=== PATIENT | male | born 1930 | race Caucasian/White ===

== ENCOUNTER 2018-09-24 06:35 | Outpatient (CLI) | payer MEDICARE, OTHER | END 2018-09-24 06:36 | disposition short-term general hospital (02) | LOC: EMS 06:35 | PROVIDERS: ATTEND Surgery | DX: R25.2 Cramp and spasm (principal); R10.30 Lower abdominal pain, unspecified; R35.8 Other polyuria | CPT/HCPCS: A0425; A0429 ==

== ENCOUNTER 2018-12-30 14:58 | Outpatient (CLI) | payer MEDICARE, OTHER | END 2018-12-30 14:59 | disposition short-term general hospital (02) | LOC: EMS 14:58 | PROVIDERS: ATTEND Surgery | DX: R07.81 Pleurodynia (principal); V49.40XA Driver injured in collision with unspecified motor vehicles in traffic accident, initial encounter; Y92.414 Local residential or business street as the place of occurrence of the external cause | CPT/HCPCS: A0425; A0427 ==

== ENCOUNTER 2020-07-06 19:37 | Outpatient (CLI) | payer MEDICARE, OTHER | END 2020-07-06 19:38 | disposition short-term general hospital (02) | LOC: EMS 19:37 | PROVIDERS: ATTEND Surgery | DX: R10.30 Lower abdominal pain, unspecified (principal) | CPT/HCPCS: A0425; A0429 ==

== ENCOUNTER 2021-02-03 03:22 | Outpatient (CLI) | payer MEDICARE, OTHER | END 2021-02-03 03:23 | disposition short-term general hospital (02) | LOC: EMS 03:22 | DX: Z04.3 Encounter for examination and observation following other accident (principal); R25.1 Tremor, unspecified | CPT/HCPCS: A0425; A0429 ==

== ENCOUNTER 2021-09-21 17:08 | Outpatient (CLI) | payer MEDICARE, OTHER | END 2021-09-21 17:09 | disposition critical access hospital (66) | LOC: EMS 17:08 | DX: R50.9 Fever, unspecified (principal); R11.0 Nausea | CPT/HCPCS: A0425; A0429 ==

== ENCOUNTER 2021-09-21 17:25 | Emergency (ER) | payer MEDICARE, OTHER ==
--- NOTE | 2021-09-21 17:32 | ED Physician Documentation ---
PD HPI FEVER - Stated complaint Stated Complaint: WEAKNESS - History obtained from History obtained from: Patient - Additional information Additional information: 89-year-old gentleman with history of UTIs was noted to be febrile and a single temperature reading at assisted living to 102 today. Fever has since defervesced. He felt nauseous with dysuria this morning, the nausea has abated. No cough or abdominal pain. Review of Systems Ten Systems: 10 systems reviewed and negative Constitutional: reports: Fever. denies: Chills Nose: reports: Reviewed and negative Cardiac: reports: Reviewed and negative Respiratory: reports: Reviewed and negative PD PAST MEDICAL HISTORY - Present Medications Home Medications: Ambulatory Orders Medication Instructions Recorded Confirmed Cefdinir 300 mg PO BID #20 cap 09/21/21 - Allergies Allergies/Adverse Reactions: Allergies Allergy/AdvReac Type Severity Reaction Status Date / Time No Known Drug Allergies Allergy Verified 09/21/21 17:38 PD ED PE NORMAL - Vitals Vital signs reviewed: Yes - General General: Alert and oriented X 3, Other (Very mild cognitive deficits, but alert oriented cooperative and pleasant.) - HEENT HEENT: PERRL, EOMI - Respiratory Respiratory: No respiratory distress, Clear bilaterally - Abdomen Abdomen: Non tender - Derm Derm: No rash - Extremities Extremities: No edema, No calf tenderness / cord Results - Vitals Vitals: Vital Signs - 24 hr 09/21/21 09/21/21 09/21/21 17:30 17:31 18:30 Temperature Heart Rate 78 53 L 83 Respiratory 28 H 16 23 Rate Blood Pressure 137/66 H 132/86 H 130/73 O2 Saturation 97 96 96 09/21/21 09/21/21 09/21/21 18:37 19:22 20:13 Temperature 36.6 C 37 C Heart Rate 72 75 78 Respiratory 25 H 20 24 Rate Blood Pressure 137/66 H 139/92 H 134/88 H O2 Saturation 98 97 96 Oxygen O2 Source Room air - Labs Labs: Laboratory Tests 09/21/21 09/21/21 09/21/21 17:41 17:41 17:41 WBC 14.2 H RBC 4.02 L Hgb 12.8 L Hct 37.4 L MCV 93.0 MCH 31.8 H MCHC 34.2 RDW 13.3 Plt Count 189 MPV 11.2 Neut # (Auto) 12.3 H Lymph # (Auto) 0.6 L Bleckley # (Auto) 1.3 H Eos # (Auto) 0.0 Baso # (Auto) 0.0 Absolute Nucleated RBC 0.00 Nucleated RBC % 0.0 Sodium 129 L Potassium 4.3 Chloride 99 L Carbon Dioxide 19 L Anion Gap 11.0 BUN 38 H Creatinine 1.6 H Estimated GFR (MDRD) 41 L Glucose 176 H Lactic Acid 2.6 H Calcium 9.0 Total Bilirubin 1.0 AST 39 ALT 15 Alkaline Phosphatase 103 Total Protein 7.3 Albumin 4.0 Globulin 3.3 Albumin/Globulin Ratio 1.2 Urine Color Urine Clarity Urine pH Ur Specific Brady Urine Protein Urine Glucose (UA) Urine Ketones Urine Occult Blood Urine Nitrite Urine Bilirubin Urine Urobilinogen Ur Leukocyte Esterase Urine RBC Urine WBC Ur Squamous Epith Cells Urine Bacteria Urine Culture Comments 09/21/21 18:25 WBC RBC Hgb Hct MCV MCH MCHC RDW Plt Count MPV Neut # (Auto) Lymph # (Auto) Bleckley # (Auto) Eos # (Auto) Baso # (Auto) Absolute Nucleated RBC Nucleated RBC % Sodium Potassium Chloride Carbon Dioxide Anion Gap BUN Creatinine Estimated GFR (MDRD) Glucose Lactic Acid Calcium Total Bilirubin AST ALT Alkaline Phosphatase Total Protein Albumin Globulin Albumin/Globulin Ratio Urine Color YELLOW Urine Clarity CLEAR Urine pH 6.0 Ur Specific Brady 1.015 Urine Protein 30 H Urine Glucose (UA) NEGATIVE Urine Ketones NEGATIVE Urine Occult Blood LARGE H Urine Nitrite NEGATIVE Urine Bilirubin NEGATIVE Urine Urobilinogen 0.2 (NORMAL) Ur Leukocyte Esterase LARGE H Urine RBC 6-10 H Urine WBC >25 H Ur Squamous Epith Cells RARE Squamous Urine Bacteria Rare Urine Culture Comments INDICATED - Rads (name of study) Three view of the x-ray 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 Tried to get discharge summary from [facility] but despite PRASHANTH E stating that he was there last summer, they have no records. Ppotential UTI. He is afebrile with unremarkable vital signs here and therefore he is nonseptic. Does have an elevated white count with borderline lactic acidosis. He is borderline for admission, unfortunately no hospital beds are Available due to Covid outbreak either here nor anywhere in the region and therefore he is given a gram of Rocephin with close follow-up. Departure - Departure Disposition: 01 Home, Self Care Clinical Impression: UTI (urinary tract infection) Qualifiers: Urinary tract infection type: acute pyelonephritis Qualified Code(s): N10 - Acute pyelonephritis Condition: Good Record reviewed to determine appropriate education?: Yes Instructions: ED UTI Pyelonephritis Male Prescriptions: Cefdinir 300 mg PO BID #20 cap Comments: He should have 3 times daily vital signs and return if he develops tachycardia or hypotension. Or otherwise worsens. He did receive 1 g of ceftriaxone intramuscularly here. Remainder of antibiotics should be filled tomorrow morning and started tomorrow morning. We will culture your urine, the results should be done in 48-72 hours. If an antibiotic change is necessary we will call you. Return if worse in the meantime, especially if you develop increasing flank pain, fevers, or cannot keep down the medication. Discharge Date/Time: 09/21/21 20:13
[2021-09-21 17:56] LABS: BASOPHILS % (AUTO) 0.1 %; HCT - HEMATOCRIT 37.4 % (42.0-52.0); HGB - HEMOGLOBIN 12.8 g/dL (14.0-18.0); LYMPHOCYTES # (AUTO) 0.6 10^3/uL (1.5-3.5); LYMPHOCYTES % (AUTO) 3.9 %; MEAN CORPUSCULAR HEMOGLOBIN 31.8 pg (27.0-31.0); MEAN CORPUSCULAR HGB CONC 34.2 g/dL (32.0-36.0); MEAN PLATELET VOLUME 11.2 fL (7.4-11.4); MONOCYTES # (AUTO) 1.3 10^3/uL (0.0-1.0); MONOCYTES % (AUTO) 9.3 %; NEUTROPHILS # (AUTO) 12.3 10^3/uL (1.5-6.6); NEUTROPHILS % (AUTO) 86.3 %; PLT - PLATELET COUNT 189 10^3/uL (130-450); RED BLOOD COUNT 4.02 10^6/uL (4.70-6.10); RED CELL DISTRIBUTION WIDTH 13.3 % (12.0-15.0); WHITE BLOOD COUNT 14.2 x10^3/uL (4.8-10.8)
[2021-09-21 18:07] LABS: ALBUMIN/GLOBULIN RATIO 1.2 (1.0-2.2); CREATININE 1.6 mg/dL (0.6-1.2); LACTIC ACID, VENOUS 2.6 mmol/L (0.5-2.2); POTASSIUM 4.3 mmol/L (3.5-5.0); TOTAL PROTEIN 7.3 g/dL (6.7-8.2)
[2021-09-21] MEDS: LIDOCAINE 2% URO-JET 5 ML SYRINGE UR STA (18:36)
[2021-09-21 18:42] LABS: BILIRUBIN,URINE NEGATIVE (NEGATIVE); GLUCOSE, URINE (UA) NEGATIVE (NEGATIVE); KETONES,URINE (UA) NEGATIVE (NEGATIVE); LEUKOCYTE ESTERASE, URINE LARGE (NEGATIVE); NITRITE,URINE NEGATIVE (NEGATIVE); OCCULT BLOOD,URINE LARGE (NEGATIVE); PROTEIN,URINE 30 mg/dL (NEGATIVE); UROBILINOGEN,URINE 0.2 (NORMAL) E.U./dL (NORMAL)
[2021-09-21 18:50] LABS: CLARITY,URINE CLEAR (CLEAR)
[2021-09-21 19:06] LABS: BACTERIA,URINE Rare /HPF (None Seen); SQUAMOUS EPITHELIAL CELL,UR RARE Squamous (<= Few); WBC,URINE >25 /HPF (0-3)
[2021-09-21] MEDS ORDERED: lidocaine 1% 20 ML MDV ONE (19:16)
[2021-09-21] MEDS: cefTRIAXone 1 GM VIAL IM STA (19:22)
[2021-09-21 20:15] VITALS: BP 134/88
== END 2021-09-21 20:13 | disposition home or self-care (01) ==
LOC: EDUNIT# → ED 17:25
DX: N10 Acute pyelonephritis (principal)
CPT/HCPCS: 36415; 51701; 80053; 81001; 83605; 85025; 87040; 87077; 87086; 87181; 99282; 99283

== ENCOUNTER 2021-09-21 20:03 | Outpatient (CLI) | payer MEDICARE, OTHER | END 2021-09-21 20:04 | disposition home or self-care (01) | LOC: EMS 20:03 | PROVIDERS: ATTEND Emergency Medicine | DX: R41.0 Disorientation, unspecified (principal); F03.90 Unspecified dementia, unspecified severity, without behavioral disturbance, psychotic disturbance, mood disturbance, and anxiety; N39.0 Urinary tract infection, site not specified | CPT/HCPCS: A0425; A0428 ==